=== PATIENT | male | born 1975 | race American Indian/Alaskan Native ===

== ENCOUNTER 2017-04-29 11:21 | Emergency (ER) | payer OTHER ==
[2017-04-29] MEDS ORDERED: XYLOCAINE 2% INFILTRATI ONE (11:43)
[2017-04-29] MEDS ORDERED: VANCOMYCIN/NS 1 GM/250 ML 1 GM/250 ML BAG IV ONE (11:43)
--- NOTE | 2017-04-29 11:45 | Emergency Department Report ---
HPI - General Chief Complaint: Wound/Laceration Time Seen by Provider: 04/29/17 11:41 - HPI HPI: This is a 41 year-old male presents the emergency department from home with a large left anterior busby laceration after he had the leg on a glass table about 30 minutes prior to presentation. He has pain where he has the laceration. He is able to bear weight but has some pain with doing so. He is up-to-date with tetanus having received one about 2 years ago during a physical through the [facility]. He denies any past medical history. He is not taking anything for his discomfort prior to presentation. ED Past Medical Hx - Past Medical History Previous Medical History?: No - Surgical History Past Surgical History?: No - Social History Smoking Status: Never Smoker Substance Use Type: None - Medications Home Medications: Home Medications Medication Instructions Recorded Confirmed Last Taken Type HYDROcodone/APAP 5-325 [[place] 1 each PO Q6HR PRN #10 tablet 04/29/17 Unknown Rx 5/325] Sulfamethoxazole/Trimethoprim 1 each PO BID #12 tablet 04/29/17 Unknown Rx [Bactrim DS TAB] ED Review of Systems ROS: Stated complaint: LEFT LEG LACERATION Other details as noted in HPI Comment: All other systems reviewed and negative Constitutional: denies: chills, fever Eyes: denies: eye pain, eye discharge, vision change ENT: denies: ear pain, throat pain Respiratory: denies: cough, shortness of breath, wheezing Cardiovascular: denies: chest pain, palpitations Gastrointestinal: denies: abdominal pain, nausea, diarrhea Genitourinary: denies: urgency, dysuria Musculoskeletal: arthralgia, myalgia Skin: other (laceration). denies: rash Neurological: denies: headache, weakness, paresthesias Physical Exam - Physical Exam Vital Signs: Vital Signs 04/29/17 11:27 Temperature 98.3 F Pulse Rate 77 Respiratory 16 Rate Blood Pressure 161/100 O2 Sat by Pulse 100 Oximetry Physical Exam: GENERAL: The patient is well-developed well-nourished. HENT: Normocephalic. Atraumatic. Patient has moist mucous membranes. EYES: Extraocular motions are intact. Pupils equal reactive to light bilaterally. NECK: Supple. Trachea is midline. CHEST/LUNGS: Clear to auscultation. There is no respiratory distress noted. HEART/CARDIOVASCULAR: Regular. There is no tachycardia. There is no gallop rub or murmur. ABDOMEN: Abdomen is soft, nontender. Patient has normal bowel sounds. There is no abdominal distention. SKIN: There is a large semicircular flap laceration to the mid left anterior leg /busby with some venous oozing. It appears down into the fat and soft tissue but does not appear to involve any obvious muscle and there is no exposed bone. NEURO: The patient is awake, alert, and oriented. The patient is cooperative. The patient has no focal neurologic deficits. The patient has normal speech and gait. MUSCULOSKELETAL: Tenderness to palpation to the left busby/tib-fib with patient has a large laceration.. There is no limitation range of motion. Neurovascularly intact. ED Course Vital Signs 04/29/17 11:27 Temperature 98.3 F Pulse Rate 77 Respiratory 16 Rate Blood Pressure 161/100 O2 Sat by Pulse 100 Oximetry - Laceration /Wound Repair Left Leg Wound Location: lower extremity Wound Length (cm): 10 Wound's Depth, Shape: irregular, flap Wound Explored: no foreign body removed Irrigated w/ Saline (ccs): 500 Anesthesia: 1% Lidocaine (2%) Volume Anesthetic (ccs): 8 Wound Repaired With: sutures Suture Size/Type: 5:0, 4:0, proline Number of Sutures: 24 (6 mattress and 18 simple interrupted) Sterile Dressing Applied?: Yes ED Medical Decision Making - Radiology Data Radiology results: image reviewed interpreted by me: X-ray of the left tib-fib does not show any fracture, dislocation or any acute process. No foreign body seen. - Medical Decision Making 41-year-old male with a large tib-fib/busby laceration. He required multiple mattress sutures and simple interrupted sutures to close it. He was placed in a pressure dressing and will be nonweightbearing for a few days to avoid any tension upon the sutures. Given a dose of vancomycin here and a few days of antibiotics at home. He is already up-to-date with tetanus. He will follow up sooner with any signs or symptoms of infection. - Differential Diagnosis laceration, fracture, location, foreign body Critical Care Time: No Critical care attestation.: If time is entered above; I have spent that time in minutes in the direct care of this critically ill patient, excluding procedure time. ED Disposition Clinical Impression: Leg pain, left Laceration of left leg Qualifiers: Encounter type: initial encounter Qualified Code(s): S81.812A - Laceration without foreign body, left lower leg, initial encounter Hypertension Qualifiers: Hypertension type: essential hypertension Qualified Code(s): I10 - Essential ( primary) hypertension Disposition: TO HOME OR SELFCARE Is pt being admited?: No Condition: Stable Instructions: Suture Care (ED), Laceration (ED), Hypertension (ED) Additional Instructions: Please follow up with your primary care doctor in a few days for a wound check. The sutures will need to be removed in 7-10 days and could be done so at a primary care office, urgent care, or back in the emergency department. Use soap and water to clean the area but then make sure it remains dry. He need to be seen sooner if there is any development of signs or symptoms of infection such as surrounding redness, discharge of pus or if it appears that the wound is coming apart. I would remain nonweightbearing to the left lower extremity for a few days and use crutches as needed. Take the antibiotics as prescribed. You have been prescribed a medication that is sedating and therefore should not be taken prior to driving, working, and responsible for children and in no way should be mixed with alcohol of any quantity. Prescriptions: HYDROcodone/APAP 5-325 [[place] 5/325] 1 each PO Q6HR PRN #10 tablet PRN Reason: Pain Sulfamethoxazole/Trimethoprim [Bactrim DS TAB] 1 each PO BID #12 tablet Referrals: PRIMARY CAREMD [Primary Care Provider] - 3-5 Days Time of Disposition: 13:38
--- NOTE | 2017-04-29 12:01 | XRay Report ---
Left tibia-fibula 2 views: History: Trauma. Findings: No fracture, periosteal reaction or lytic lesion. No soft tissue calcification. Impression: Essentially negative left tibia and fibula.
[2017-04-29] MEDS ORDERED: MORPHINE IV ONE (12:04)
[2017-04-29] MEDS ORDERED: NACL 0.9% 1,000 ML IR ONE (12:22)
[2017-04-29 14:11] VITALS: BP 153/100
== END 2017-04-29 14:11 | disposition home or self-care (01) ==
LOC: ED 11:21
DX: S81.812A Laceration without foreign body, left lower leg, initial encounter (principal); I10 Essential (primary) hypertension; W22.03XA Walked into furniture, initial encounter; Y93.89 Activity, other specified; Y92.89 Other specified places as the place of occurrence of the external cause; Y99.8 Other external cause status
CPT/HCPCS: 12034; 73590; 96365; 96375; 99283; J2270; J3370